=== PATIENT | male | born 1985 | race Two or more races ===

== ENCOUNTER 2016-08-05 20:21 | Emergency (ER) | payer SELFPAY ==
[~2016-08-05] VITALS: Ht 172.7 cm; Wt 95.3 kg
[2016-08-05 21:08] LABS: BASO % 0 % (0-3); EOS % 0 % (0-3); HEMATOCRIT 46.7 % (39.0-53.0); LYMPH # 1.6 x10^3/uL (1.0-4.8); LYMPH % 13 % (24-48); MEAN CORPUSCULAR HEMOGLOBIN 29 pg (25-35); MEAN CORPUSCULAR HGB CONC 34 g/dL (31-37); MEAN CORPUSCULAR VOLUME 85 fL (79-100); MONO % 4 % (0-9); NEUT % 83 % (31-73); PLATELET COUNT 244 x10^3/uL (140-400); RED CELL DISTRIBUTION WIDTH 13.4 % (11.5-14.5); WHITE BLOOD COUNT 12.2 x10^3/uL (4.0-11.0)
[2016-08-05 21:11] LABS: BILIRUBIN,URINE NEGATIVE (NEG); GLUCOSE,URINE NEGATIVE (NEG); NITRITE,URINE NEGATIVE (NEG); PH,URINE 8.5; PROTEIN,URINE 30 mg/dL (NEG-TRACE)
[2016-08-05 21:12] LABS: BARBITURATES NEG (NEG); BENZODIAZEPINES NEG (NEG); CANNABINOIDS NEG (NEG); COCAINE NEG (NEG); METHADONE NEG (NEG); OPIATES POS (NEG); PHENCYCLIDINE NEG (NEG)
[2016-08-05 21:17] LABS: BACTERIA,URINE 0 /HPF (0-FEW); RBC,URINE 0 /HPF (0-2); SQUAMOUS EPITHELIAL CELL,UR OCC /LPF; WBC,URINE 0 /HPF (0-4)
[2016-08-05 21:30] LABS: CALCIUM 9.1 mg/dL (8.5-10.1); CREATININE 0.8 mg/dL (0.7-1.3); GFR 115.1; POTASSIUM 3.6 mmol/L (3.5-5.1)
[2016-08-05 21:50] VITALS: BP 134/105
--- NOTE | 2016-08-05 22:14 | ED.ADGEN ---
Past Medical History Past Medical History: Asthma Past Surgical History: No Surgical History Alcohol Use: Occasionally Drug Use: Heroin Adult General Chief Complaint Chief Complaint: DRUG ABUSE HPI HPI Patient is a 30 year old man, history of asthma, who presents to the emergency department with a complaint of withdrawal from heroin requesting detox. Patient states that he began using heroin several months ago. He states that he last used heroin last night, and is currently withdrawing. He is complaining of chills, and feeling unable to lie still. He denies any chest pain or shortness breath, any nausea or vomiting, any diarrhea, any weakness, numbness or tingling , headache or other complaints at this time. He states he has not previously been in detox, denies use of any other drugs or substances. No homicidal or suicidal ideations, no hallucinations. No sick contacts or exposures. No other complaints. He states that he is willing to undergo a medical screening examination, to determine if he can be placed in a detox facility. Review of Systems Review of Systems Constitutional: Denies fever or chills. Feeling cold and "shaky". Eyes: Denies change in visual acuity. [] HENT: Denies nasal congestion or sore throat. [] Respiratory: Denies cough or shortness of breath. [] Cardiovascular: Denies chest pain or edema. [] GI: Denies abdominal pain, nausea, vomiting, bloody stools or diarrhea. [] : Denies dysuria. [] Musculoskeletal: Denies back pain or joint pain. [] Integument: Denies rash. [] Neurologic: Denies headache, focal weakness or sensory changes. [] Endocrine: Denies polyuria or polydipsia. [] Lymphatic: Denies swollen glands. [] Psychiatric: Denies depression or anxiety. [] Allergies Allergies Allergies Coded Allergies Type Severity Reaction Last Updated Verified No Known Drug Allergies 08/05/16 No Physical Exam Physical Exam Constitutional: Well developed, well nourished, no acute distress, non-toxic appearance. Patient is constantly turning and moving in the bed. Unable to sit still. HENT: Normocephalic, atraumatic, bilateral external ears normal, oropharynx moist, no oral exudates, nose normal. [] Eyes: PERRLA, EOMI, conjunctiva normal, no discharge. [] Neck: Normal range of motion, no tenderness, supple, no stridor. [] Cardiovascular:Heart rate regular rhythm, no murmur, S1, S2, rubs or gallops. [] Lungs & Thorax: Bilateral breath sounds clear to auscultation, no wheezing, rhonchi, rales. No chest wall crepitus or tenderness. [] Abdomen: Bowel sounds normal, soft, no tenderness, no rebound, rigidity, no guarding, no masses, no pulsatile masses. [] Skin: Warm, dry, no erythema, no rash. [] Back: No tenderness, no CVA tenderness. [] Extremities: No tenderness, no cyanosis, no clubbing, ROM intact, no edema. [] Neurologic: Alert and oriented X 3, patient appears slightly anxious, and is counseling moving in bed, but is appropriate in his responses, calm and cooperative normal motor function, normal sensory function, no focal deficits noted. [] Psychologic: Affect normal, judgement normal, mood normal. [] Current Patient Data Vital Signs Vital Signs Date Time Temp Pulse Resp B/P (MAP) Pulse Ox O2 Delivery O2 Flow Rate FiO2 08/05/16 21:50 54 20 134/105 (115) 94 Room Air 08/05/16 20:24 98.3 98.3 Lab Values Laboratory Tests Test 08/05/16 20:59 08/05/16 21:00 White Blood Count 12.2 x10^3/uL (4.0-11.0) H Red Blood Count 5.50 x10^6/uL (4.30-5.70) Hemoglobin 16.0 g/dL (13.0-17.5) Hematocrit 46.7 % (39.0-53.0) Mean Corpuscular Volume 85 fL (79-100) Mean Corpuscular Hemoglobin 29 pg (25-35) Mean Corpuscular Hemoglobin Concent 34 g/dL (31-37) Red Cell Distribution Width 13.4 % (11.5-14.5) Platelet Count 244 x10^3/uL (140-400) Neutrophils (%) (Auto) 83 % (31-73) H Lymphocytes (%) (Auto) 13 % (24-48) L Monocytes (%) (Auto) 4 % (0-9) Eosinophils (%) (Auto) 0 % (0-3) Basophils (%) (Auto) 0 % (0-3) Neutrophils # (Auto) 10.1 x10^3uL (1.8-7.7) H Lymphocytes # (Auto) 1.6 x10^3/uL (1.0-4.8) Monocytes # (Auto) 0.5 x10^3/uL (0.0-1.1) Eosinophils # (Auto) 0.0 x10^3/uL (0.0-0.7) Basophils # (Auto) 0.0 x10^3/uL (0.0-0.2) Sodium Level 140 mmol/L (136-145) Potassium Level 3.6 mmol/L (3.5-5.1) Chloride Level 101 mmol/L (98-107) Carbon Dioxide Level 27 mmol/L (21-32) Anion Gap 12 (6-14) Blood Urea Nitrogen 6 mg/dL (8-26) L Creatinine 0.8 mg/dL (0.7-1.3) Estimated GFR (Cockcroft-Gault) 115.1 Glucose Level 109 mg/dL (70-99) H Calcium Level 9.1 mg/dL (8.5-10.1) Ethyl Alcohol Level < 10 mg/dL (0-10) Urine Collection Type Unknown Urine Color Yellow Urine Clarity Clear Urine pH 8.5 Urine Specific [place] >=1.030 Urine Protein 30 mg/dL (NEG-TRACE) Urine Glucose (UA) Negative mg/dL (NEG) Urine Ketones (Stick) Negative mg/dL (NEG) Urine Blood Negative (NEG) Urine Nitrite Negative (NEG) Urine Bilirubin Negative (NEG) Urine Urobilinogen Dipstick 1.0 mg/dL (0.2 mg/dL) Urine Leukocyte Esterase Negative (NEG) Urine RBC 0 /HPF (0-2) Urine WBC 0 /HPF (0-4) Urine Squamous Epithelial Cells Occ /LPF Urine Bacteria 0 /HPF (0-FEW) Urine Mucus Mod /LPF Urine Opiates Screen Pos (NEG) Urine Methadone Screen Neg (NEG) Urine Barbiturates Neg (NEG) Urine Phencyclidine Screen Neg (NEG) Urine Amphetamine/Methamphetamine Neg (NEG) Urine Benzodiazepines Screen Neg (NEG) Urine Cocaine Screen Neg (NEG) Urine Cannabinoids Screen Neg (NEG) Urine Ethyl Alcohol Neg (NEG) Laboratory Tests 08/05/16 20:59 Laboratory Tests 08/05/16 20:59 EKG EKG EC: Sinus rhythm, heart rate 57 beats minute, upright axis, QTC of 402, NC 136, QRS of 92, no ST elevations or depressions, no evidence of acute ST abnormalities. As interpreted by me. [] Radiology/Procedures Radiology/Procedures Not indicated. [] Course & Med Decision Making Course & Med Decision Making Pertinent Labs and Imaging studies reviewed. (See chart for details) Patient received laboratory studies in the emergency department, which are unremarkable, along with ECG. I did discuss with him the process from being evaluated by the members of the psychiatric assessment team to determine if they can arrange for inpatient detox, and the fact that this will be a several day process. Patient voices understanding and agreement with this plan. Patient was evaluated by Payton of the psychiatric assessment team in the ED. She states that the patient has told her that he is going to return to [place] tomorrow morning, his girlfriend will drive him there, and therefore he is not interested in staying in the area for a several day detox process. As stated, he remained stable and cooperative in the emergency department. Patient states that he would rather be discharged at this point, he will go home tomorrow, and will begin the detox process near his home. We did discuss with him concerning symptoms that prompt return to the ED, he was also given area resources, in case he changes his mind and decides to stay in the area for some time. Patient voiced understanding and agreement, was discharged home in stable condition, and provided with a cab pass back to his hotel where his girlfriend is staying. Dragon Disclaimer Dragon Disclaimer This electronic medical record was generated, in whole or in part, using a voice recognition dictation system. Departure Impression: Primary Impression: Heroin abuse Disposition: HOME, SELF-CARE Condition: STABLE ABELARDOMANJITKITTY Keys DO Aug 05, 2016 22:14
--- NOTE | 2016-08-06 06:20 | EKG ---
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
== END 2016-08-05 23:03 | disposition home or self-care (01) ==
LOC: ER 20:21
DX: F11.10 Opioid abuse, uncomplicated (principal); J45.909 Unspecified asthma, uncomplicated
CPT/HCPCS: 36415; 80048; 80305; 80320; 81001; 85027; 93005; G0480; G0481; 99285-25